=== PATIENT | female | born 1985 | race Two or more races ===

== ENCOUNTER → 2024-08-05 | Outpatient (CLI) | payer MEDICAID, SELFPAY ==
--- NOTE | 2024-08-05 09:00 | XR_ITS ---
Examination: Breast ultrasound, unilateral, left complete Date and time of exam: August 05, 2024 at 0950 hrs. Indications: Left breast tenderness beginning one year ago, grouped microcalcifications inner upper left breast Technique: Real-time marin scale ultrasonographic imaging performed left breast including all 4 quadrants as well as nipple retroareolar and axillary region. Findings: No cystic or solid mass Dilated retroareolar ducts Impression: BI-RADS Category 2: Benign findings
--- NOTE | 2024-08-05 09:30 | XR_ITS ---
Examination: Diagnostic digital mammography, unilateral, left Computer aided detection 3-D breast Tomosynthesis, unilateral Date and time of exam: 08/05/2024, 9:50 AM Comparisons: 01/29/2024 Indications: Further evaluation of calcifications seen on screening exam. Technique: Nonmagnified MLO, CC views of the left breast have been obtained, reconstructed from 3-D Tomosynthesis images. R2 computer aided detection program utilized for evaluation of suspicious masses and/or abnormal calcifications. 3-D Tomosynthesis images obtained. Technologist: Findings: There are scattered areas of fibroglandular density. Spot magnification demonstrate benign-appearing round punctate calcifications. No evidence of suspicious morphology. No evidence of abnormal masses. Impression: Improving calcifications as above. BI-RADS category 2: Benign findings Recommend 1 year follow-up mammogram
== END | disposition home or self-care (01) ==
PROVIDERS: PCP Physician Assistant; Referring Provider Physician Assistant; Visit Provider Physician Assistant
DX: R92.322 Mammographic fibroglandular density, left breast (principal); R92.1 Mammographic calcification found on diagnostic imaging of breast
CPT/HCPCS: 76641; 77061; 77065; G0279